=== PATIENT | female | born 1980 | race Caucasian/White ===

== ENCOUNTER 2019-02-15 16:14 | Emergency (ER) | payer OTHER ==
[~2019-02-15] VITALS: Ht 167.6 cm; Wt 69.4 kg
[2019-02-15] MEDS ORDERED: DEPO MEDRO INJECTION (16:29)
[2019-02-15] MEDS ORDERED: NAPROSYN500 M1 PO (17:09)
[2019-02-15 17:25] VITALS: BP 126/74
== END 2019-02-15 17:27 | disposition home or self-care (01) ==
LOC: M.ERS 16:14
DX: S93.491A Sprain of other ligament of right ankle, initial encounter (principal); F17.210 Nicotine dependence, cigarettes, uncomplicated; Z98.51 Tubal ligation status; W10.8XXA Fall (on) (from) other stairs and steps, initial encounter; Y93.89 Activity, other specified; Y92.89 Other specified places as the place of occurrence of the external cause; Y99.8 Other external cause status

== ENCOUNTER 2020-03-26 11:33 | Emergency (ER) | payer OTHER, MEDICAID ==
[~2020-03-26] VITALS: Ht 170.2 cm; Wt 72.6 kg
[~2020-03-26 11:33] MED LIST: DEPO MEDRO INJECTION; NAPROSYN500 M1 PO
[2020-03-26 12:10] LABS: ABSOLUTE BASOPHILS 0.1 thou/uL (0.0-0.2); ABSOLUTE EOSINOPHILS 0.3 thou/uL (0.0-0.7); ABSOLUTE LYMPHOCYTES 2.2 thou/uL (0.8-5.3); ABSOLUTE MONOCYTES 0.6 thou/uL (0.0-1.2); ABSOLUTE NEUTROPHILS 7.9 thou/uL (1.6-8.1); BASOPHILS 0.8 %; EOSINOPHILS 3.1 %; HEMATOCRIT 40.2 % (37.0-47.0); HEMOGLOBIN 13.4 gm/dL (12.0-15.0); LYMPHOCYTES 19.4 %; MCH 29.5 pg (26.0-34.0); MCHC 33.4 g/dL (28.0-37.0); MCV 88.5 fL (80.0-100.0); MONOCYTES 5.7 %; MPV 8.3 fl. (7.2-11.1); NUCLEATED RBCS 0 /100WBC; PLATELET COUNT* 386 thou/uL (150-400); RBC 4.54 mil/uL (4.20-5.00); WBC 11.2 thou/uL (4.0-11.0)
[2020-03-26 12:12] LABS: URINE BILIRUBIN NEGATIVE (Negative); URINE BLOOD 3+ (Negative); URINE CLARITY CLEAR; URINE COLOR YELLOW; URINE GLUCOSE-RANDOM NEGATIVE (Negative); URINE KETONES NEGATIVE (Negative); URINE LEUKOCYTES-REFLEX 1+ (Negative); URINE NITRITE-REFLEX NEGATIVE (Negative); URINE PROTEIN NEGATIVE (Negative); URINE SPECIFIC GRAVITY 1.015 (1.005-1.030); URINE UROBILINOGEN 0.2 E.U./dl (0.2-1.0)
[2020-03-26 12:17] LABS: CASTS None Seen /LPF (None Seen); CRYSTALS None Seen /LPF (None Seen); SQUAMOUS 0-3 Few /LPF (0-3); URINE RBC 0-2 Rare /HPF (0-2); URINE WBC-REFLEX 0-5 Rare /HPF (0-5)
[2020-03-26 12:19] LABS: ANION GAP 7 mmol/L (7-16); BUN 10 mg/dL (7-18); CALCIUM 9.1 mg/dL (8.5-10.1); CHLORIDE 105 mmol/L (98-107); CO2 29 mmol/L (21-32); CREATININE 0.8 mg/dL (0.6-1.3); GLUCOSE 112 mg/dL (70-99); SODIUM 141 mmol/L (136-145)
[2020-03-26 12:23] LABS: ALBUMIN 3.2 g/dL (3.4-5.0); ALKALINE PHOSPHATASE 93 U/L (46-116); LIPASE 228 U/L (73-393); SGOT 15 U/L (15-37); SGPT 37 U/L (30-65); TOTAL PROTEIN 7.3 g/dL (6.4-8.2)
[2020-03-26 12:25] LABS: TOTAL BILIRUBIN < 0.1 mg/dL (<0.1-1.0)
[2020-03-26] MEDS ORDERED: IBUPROFEN 800800 M1 PO (13:28)
[2020-03-26] MEDS ORDERED: DOXYCYCLINE 10100 MG PO (13:28)
[2020-03-26] MEDS ORDERED: TRAMADOL 50 MG50 MG PO (13:28)
[2020-03-26 13:44] VITALS: BP 126/78
== END 2020-03-26 13:45 | disposition home or self-care (01) ==
LOC: M.ERS 11:33
PROVIDERS: Nurse Practitioner Family
DX: N72 Inflammatory disease of cervix uteri (principal); A59.01 Trichomonal vulvovaginitis; Z97.5 Presence of (intrauterine) contraceptive device; F12.90 Cannabis use, unspecified, uncomplicated; Z98.51 Tubal ligation status